=== PATIENT | male | born 1960 | race Caucasian/White ===

== ENCOUNTER 2018-07-08 20:20 | Emergency (ER) | payer MEDICAID ==
[2018-07-08] MEDS: ONDANSETRON 4 MG INJ IV (22:47)
[2018-07-08] MEDS: HYDROmorphONE 2 MG/ML SYG IV (22:48)
[2018-07-08 23:15] LABS: TROPONIN-I < 0.010 ng/ml (0.000-0.120)
[2018-07-09] MEDS: CLINDAMYCIN 900 MG/D5W (PMX) 50 ML IVPB (00:39)
== END 2018-07-09 02:01 | disposition home or self-care (01) ==
LOC: E/R 07-09 02:01
DX: S02.40DB Maxillary fracture, left side, initial encounter for open fracture (principal); E11.9 Type 2 diabetes mellitus without complications; R51 Headache; Y04.2XXA Assault by strike against or bumped into by another person, initial encounter; Z79.82 Long term (current) use of aspirin; Z79.84 Long term (current) use of oral hypoglycemic drugs
CPT/HCPCS: 70450; 70486; 71045; 84484; 93005; 96374; 96375; 99285-25